=== PATIENT | female | born 1970 | race Caucasian/White ===

== ENCOUNTER 2018-05-22 09:07 | Emergency (ER) | payer OTHER ==
[2018-05-22 09:38] VITALS: BP 130/84
--- NOTE | 2018-05-22 10:07 | UC ---
Abdominal Pain Female HPI - HPI Summary HPI Summary: 47 yo female presents with LLQ pain since early yesterday morning. She tells me that around 0400 yesterday morning she would to LLQ cramping and sharp pain. She had a loose BM and felt better. Since that time she has been having this pain relieved by a loose/watery BM every 2-3 hours. She is trying to eat, but says that every time she eats she will have increased pain in the LLQ and a BM. Late yesterday she had a period of 6 hours without pain or diarrhea, but as soon as she ate her symptoms returned. She has had 2 colonoscopies in the past due to famhx of colon cancer and both were normal per pt. She does not believe she has a hx of diverticulosis. The day before her symptoms began she did not eat anything out of the ordinary. She says she is allergic to nuts and therefore has not eaten any nuts, granola, or foods with seeds. One of her friend's daughters is sick with something similar and pt wonders if this could be viral. She denies fever, chills, n/v, dysuria, or blood in stool. - History of Current Complaint Chief Complaint: UCGI Stated Complaint: DIARRHEA Time Seen by Provider: 05/22/18 09:49 Hx Obtained From: Patient Hx Last Menstrual Period: 03/2018 Severity Initially: Mild Severity Currently: Mild Pain Intensity: 3 Pain Scale Used: 0-10 Numeric Allergies/Adverse Reactions: Allergies Allergy/AdvReac Type Severity Reaction Status Date / Time No Known Allergies Allergy Verified 05/22/18 09:34 Home Medications: Home Medications Montelukast Sodium TAB* [Singulair TAB*] 10 mg PO DAILY 05/22/18 [History Confirmed 05/22/18] PMH/Surg Hx/FS Hx/Imm Hx - Additional Past Medical History Additional PMH: Allergies - Surgical History Surgical History: None - Family History Known Family History: Positive: Other - Colon cancer - Social History Occupation: Employed Full-time Lives: With Family Alcohol Use: Occasionally Substance Use Type: None Smoking Status (MU): Never Smoked Tobacco Review of Systems All Other Systems Reviewed And Are Negative: Yes Constitutional: Positive: Negative Respiratory: Positive: Negative Cardiovascular: Positive: Negative Gastrointestinal: Positive: Abdominal Pain, Diarrhea Genitourinary: Positive: Negative Motor: Positive: Negative Neurovascular: Positive: Negative Neurological: Positive: Negative Psychological: Positive: Negative Physical Exam - Summary Physical Exam Summary: GENERAL: NAD. WDWN. No pain distress. SKIN: No rashes, sores, lesions, or open wounds. NECK: Supple. Nontender. No lymphadenopathy. CHEST: CTAB. No r/r/w. No accessory muscle use. Breathing comfortably and in no distress. CV: RRR. Without m/r/g. Pulses intact. Cap refill <2seconds ABDOMEN: Mild TTP LLQ. Soft. No distention or guarding. No CVA tenderness. Bowel sounds present NEURO: Alert. PSYCH: Age appropriate behavior. Triage Information Reviewed: Yes Vital Signs: Initial Vital Signs Temp 99 F 05/22/18 09:30 Pulse 74 05/22/18 09:30 Resp 16 05/22/18 09:30 BP 130/84 05/22/18 09:30 Pulse Ox 100 05/22/18 09:30 Vital Signs Reviewed: Yes Abd Pain Female Course/Dx - Course Course Of Treatment: Discussed with pt possibility of viral illness vs diverticulitis/colitis. I recommended that she undergo CT imaging of the area, but she did not want to expose herself to radiation if this could be a viral illness. We then discussed treated for diverticulitis with Cipro/Flagyl without imaging, but she prefers not to be on antibiotics and without a clear diagnoses - I am hesistant to prescribe this for her. She elected to give her symptoms another 24-48hours to see if they improve - if not, she will go to the ED. - Differential Dx/Diagnosis Provider Diagnoses: LLQ pain. diarrhea Discharge - Sign-Out/Discharge Documenting (check all that apply): Patient Departure All imaging exams completed and their final reports reviewed: No Studies - Discharge Plan Condition: Stable Disposition: HOME Patient Education Materials: Diverticulitis (ED), Enteritis (ED) Referrals: Queenie Albert MD [Primary Care Provider] - Additional Instructions: If you develop a fever, shortness of breath, chest pain, new or worsening symptoms - please call your PCP or go to the ED. 1) If your symptoms do not improve within the next day or two - please go to the ER for further evaluation - Billing Disposition and Condition Condition: STABLE Disposition: Home - Attestation Statements Provider Attestation: I was available for consult. This patient was seen by the ALAN. The patient was not presented to, seen by, or examined by me. -Mara
== END 2018-05-22 10:32 | disposition home or self-care (01) ==
LOC: UCCORT 09:07
DX: R19.7 Diarrhea, unspecified (principal); R10.32 Left lower quadrant pain
CPT/HCPCS: 99202; G0463

== ENCOUNTER 2019-04-22 12:28 | Emergency (ER) | payer OTHER ==
[2019-04-22 13:29] VITALS: BP 160/92
--- NOTE | 2019-04-22 13:41 | UC ---
Throat Pain/Nasal Jaswant HPI - HPI Summary HPI Summary: Pt presents with c/o fever, chills, left ear pain, sinus pressure and pain, cough, X 2 weeks. - History of Current Complaint Stated Complaint: ARORA,SINUS COMPLAINT,COUGH,FEVER,CHILLS Time Seen by Provider: 04/22/19 12:56 Hx Obtained From: Patient Hx Last Menstrual Period: 04/05/19 ?: No Onset/Duration: Sudden Onset, Lasting Weeks, Still Present, Worse Since Severity: Moderate Pain Intensity: 0 Cough: Productive Associated Signs & Symptoms: Positive: Sinus Discomfort, Fever Related History: Smoking - Epiglottits Risk Factors Epiglottis Risk Factors: Sudden Onset - Allergies/Home Medications Allergies/Adverse Reactions: Allergies Allergy/AdvReac Type Severity Reaction Status Date / Time nut - unspecified Allergy Unknown ORAL Verified 04/22/19 13:13 SWELLING, DIFFICULTY BREATHING ENVIROMENTAL Allergy Unknown Unknown Uncoded 04/22/19 13:14 Reaction Details FRESH FRUIT AND VEGTABLES Allergy Unknown ORAL Uncoded 04/22/19 13:13 REACTION, SWELLING OF [place], DIFFICULTY BREATHING. DYE IN MEDICATIONS Allergy HIVES, Uncoded 04/22/19 13:14 THROAT SWELLING, DIFFICULTY BREATHING Home Medications: Home Medications Ibuprofen TAB* [Advil TAB*] 400 mg PO Q6H PRN 04/22/19 [History Confirmed ] Mv-Mn/C/Glutamin/Lysin/[id number] [Airborne Gummies] 1 chw PO PRN 04/22/19 [History ] PMH/Surg Hx/FS Hx/Imm Hx Previously Healthy: Yes - Surgical History Surgical History: None - Family History Known Family History: Positive: Other - Colon cancer - Social History Occupation: Employed Full-time - at [employer] Lives: With Family Alcohol Use: Occasionally Substance Use Type: None Smoking Status (MU): Never Smoked Tobacco Household Exposure Type: Cigarettes Review of Systems All Other Systems Reviewed And Are Negative: Yes Constitutional: Positive: Fever, Chills Skin: Positive: Negative Eyes: Positive: Negative ENT: Positive: Nasal Discharge, Sinus Congestion, Sinus Pain/Tenderness Respiratory: Positive: Cough Cardiovascular: Positive: Negative Gastrointestinal: Positive: Negative Genitourinary: Positive: Negative Motor: Positive: Negative Neurovascular: Positive: Negative Musculoskeletal: Positive: Myalgia Neurological: Positive: Headache Psychological: Positive: Negative Is Patient Immunocompromised?: No Physical Exam Triage Information Reviewed: Yes Appearance: Ill-Appearing Vital Signs: Initial Vital Signs Temp 99.7 F 04/22/19 13:16 Pulse 82 04/22/19 13:16 Resp 16 04/22/19 13:16 BP 160/92 04/22/19 13:16 Pulse Ox 100 04/22/19 13:16 Vital Signs Reviewed: Yes Eye Exam: Normal ENT: Positive: Nasal congestion, TM bulging - right TM has hole, 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 Had hx of childhood OM- frequent, Sinus tenderness Dental Exam: Normal Neck exam: Normal Respiratory Exam: Normal Cardiovascular Exam: Normal Musculoskeletal Exam: Normal Neurological Exam: Normal Psychological Exam: Normal Skin Exam: Normal Throat Pain/Nasal Course/Dx - Differential Dx/Diagnosis Differential Diagnosis/HQI/PQRI: Influenza, Otitis Media, Sinusitis, Tonsillitis , URI Provider Diagnosis: Sinusitis Discharge ED - Sign-Out/Discharge Documenting (check all that apply): Patient Departure All imaging exams completed and their final reports reviewed: No Studies - Discharge Plan Condition: Stable Disposition: HOME Prescriptions: Amoxicillin PO (*) [Amoxicillin 875 MG (*)] 875 mg PO Q12H #20 tab Patient Education Materials: Sinusitis (ED) Referrals: Queenie Albert MD [Primary Care Provider] - If Needed - Billing Disposition and Condition Condition: STABLE Disposition: Home - Attestation Statements Provider Attestation: Per institutional requirements, I have reviewed the chart, however, I was not consulted specifically or made aware of this patient by the midlevel provider. I did not personally evaluate, interact with , or disposition this patient.
== END 2019-04-22 14:10 | disposition home or self-care (01) ==
LOC: UCCORT 12:28
DX: J32.9 Chronic sinusitis, unspecified (principal); H92.01 Otalgia, right ear; R05 Cough; Z91.018 Allergy to other foods; Z91.09 Other allergy status, other than to drugs and biological substances
CPT/HCPCS: 99212; G0463